=== PATIENT | female | born 1990 ===

== ENCOUNTER 2018-01-03 04:30 | Emergency (ER) | payer MEDICAID ==
[2018-01-03 10:14] VITALS: BP 111/57
[2018-01-03 11:24] LABS: Bilirubin,Urine NEG (Negative); Blood,Urine LG (Negative); Color,Urine Yellow (Yellow); Mucus,Urine 3+ /HPF; Protein,Urine <15 mg/dL mg/dL (Negative)
[2018-01-03 11:25] LABS: HCG Qualitative,Urine Negative (Negative)
--- NOTE | 2018-01-03 11:51 | Emergency Department Report ---
ED Female HPI - General Chief complaint: Abdominal Pain Stated complaint: ABDOMINAL PAIN Source: patient Mode of arrival: Ambulatory Limitations: No Limitations - History of Present Illness Initial comments: Assessment 27-year-old -[place] female who presents with abdominal pain for 1 day. Patient reports pain is on the left lower quadrant radiating to left flank. She was to work yesterday when pain started. Patient reports pain as sharp and constant. Last menstrual period started 12/31/2012, A0. Patient reports current pain is 3 out of 10 on pain scale and it feels like something is being ripped from inside. She denies some large clots, nausea or vomiting, dysuria, frequency, urgency, or fever. MD Complaint: pelvic pain Onset/Timin -: days(s) Location: LLQ Radiation: non-radiating Severity: moderate Severity scale (0 -10): 5 Quality: sharp Consistency: constant Improves with: none Worsens with: movement Are you Now?: No Last Menstrual Period: 12/31/17 EDC: 10/07/18 Associated Symptoms: denies other symptoms - Related Data Sexually active: Yes : 3 Para: 3 A: 0 Allergies Allergy/AdvReac Type Severity Reaction Status Date / Time No Known Allergies Allergy Unverified 01/03/18 10:14 ED Review of Systems ROS: Stated complaint: ABDOMINAL PAIN Other details as noted in HPI Constitutional: denies: chills, fever Respiratory: denies: cough, shortness of breath, wheezing Cardiovascular: denies: chest pain, palpitations Gastrointestinal: abdominal pain (LLQ tenderness radiating to left flank). denies: nausea, diarrhea Genitourinary: denies: urgency, dysuria, discharge Musculoskeletal: denies: back pain, joint swelling, arthralgia Skin: denies: rash, lesions Neurological: denies: headache, weakness, paresthesias Psychiatric: denies: anxiety, depression ED Past Medical Hx - Past Medical History Previous Medical History?: No - Surgical History Past Surgical History?: Yes Additional Surgical History: Ovarian cyst removed 2012 - Social History Smoking Status: Current Every Day Smoker Substance Use Type: None ED Physical Exam - General Limitations: No Limitations General appearance: alert, in no apparent distress - Respiratory Respiratory exam: Present: normal lung sounds bilaterally. Absent: respiratory distress - Cardiovascular Cardiovascular Exam: Present: regular rate, normal rhythm. Absent: systolic murmur, diastolic murmur, rubs, gallop - GI/Abdominal GI/Abdominal exam: Present: soft, tenderness (LLQ tenderness), normal bowel sounds. Absent: distended, guarding, rebound, rigid, organomegaly, mass - Back Exam Back exam: Present: normal inspection - Neurological Exam Neurological exam: Present: alert, oriented X3 - Psychiatric Psychiatric exam: Present: normal affect, normal mood - Skin Skin exam: Present: warm, dry, intact, normal color. Absent: rash ED Course Vital Signs 01/03/18 01/03/18 04:33 10:11 Temperature 99.1 F 98.6 F Pulse Rate 116 H 87 Respiratory 20 16 Rate Blood Pressure 116/73 111/57 O2 Sat by Pulse 99 99 Oximetry ED Medical Decision Making - Lab Data Result diagrams: 01/03/18 11:58 01/03/18 11:56 - Radiology Data Radiology results: report reviewed, image reviewed ULTRASOUND PELVIC COMPLETE HISTORY: Left lower quadrant tenderness. COMPARISON: None. TECHNIQUE: Transabdominal ultrasound with color doppler interrogation. FINDINGS: The uterus and ovaries are normal size, contour and echotexture. No evidence for mass, cyst or fluid. IMPRESSION: Unremarkable pelvic sonogram. - Medical Decision Making Patient was examined by me in fast track emergency room. Vitals are normal and patient is in no acute distress. Obtained labs and Ultrasound of pelvic. The ultrasound was read by radiologist and report reviewed by myself and no acute findings. Patient informed of results. Continue taken ibuprofen for painful abdominal cramping during menses. Follow-up with [facility]. Plan discussed with patient to discharge home and treat outpatient. Patient given referrals to [facility] for continuous care. Patient discharged home in stable condition. Follow up with PCP in 2-3 days. Critical care attestation.: If time is entered above; I have spent that time in minutes in the direct care of this critically ill patient, excluding procedure time. ED Disposition Clinical Impression: Abdominal cramping, Menses painful Disposition: - TO HOME OR SELFCARE Is pt being admited?: No Does the pt Need Aspirin: No Condition: Stable Instructions: Abdominal Pain (ED) Additional Instructions: Follow-up with [facility] in 3-5 days. Referrals: [facility] [Provider Group] - 3-5 Days [facility] [Provider Group] - 3-5 Days ARIANNE ALFARO MD [Staff Physician] - 3-5 Days Forms: Work/School Release Form(ED) Time of Disposition: 16:24 Print Language: STATELESS
[2018-01-03 12:06] LABS: Hemoglobin 10.8 gm/dl (10.1-14.3); Mean Corpuscular HGB Conc 35 % (30-34); Mean Corpuscular Hemoglobin 30 pg (28-32); Mean Corpuscular Volume 86 fl (79-97); Platelet Count 352 K/mm3 (140-440); Red Blood Count 3.62 M/mm3 (3.65-5.03); Red Cell Distribution Width 16.2 % (13.2-15.2)
[2018-01-03 12:34] LABS: Alanine Aminotransferase 13 units/L (7-56); Albumin 4.3 g/dL (3.9-5); BUN/Creatinine Ratio 24; Blood Urea Nitrogen 12 mg/dL (7-17); Calcium 9.2 mg/dL (8.4-10.2); Hemolysis Index 20
--- NOTE | 2018-01-03 15:49 | Ultrasound Report ---
ULTRASOUND PELVIC COMPLETE HISTORY: Left lower quadrant tenderness. COMPARISON: None. TECHNIQUE: Transabdominal ultrasound with color doppler interrogation. FINDINGS: The uterus and ovaries are normal size, contour and echotexture. No evidence for mass, cyst or fluid. IMPRESSION: Unremarkable pelvic sonogram.
== END 2018-01-03 16:39 | disposition home or self-care (01) ==
LOC: ED 04:30
DX: N94.6 Dysmenorrhea, unspecified (principal); F17.200 Nicotine dependence, unspecified, uncomplicated
CPT/HCPCS: 36415; 76856; 80053; 81001; 81025; 85027; 99284